=== PATIENT | female | born 1940 | race Caucasian/White ===

== ENCOUNTER 2018-10-19 17:57 | Inpatient (IN) | payer MEDICARE, BC ==
[~2018-10-19] VITALS: Ht 152.4 cm; Wt 53.0 kg
[2018-10-19 18:45] LABS: BASOPHILS # (AUTO) 0.2 X10'3 (0-0.2); BASOPHILS % (AUTO) 2.6 % (0-1); EOSINOPHILS % (AUTO) 0.4 % (0-6); HEMATOCRIT 40.4 % (35.0-45.0); HEMOGLOBIN 13.6 g/dl (12.0-16.0); LYMPHOCYTES # (AUTO) 0.8 X10'3 (1.1-4.8); LYMPHOCYTES % (AUTO) 9.8 % (21-51); MEAN CORPUSCULAR HEMOGLOBIN 30.5 PG (27.0-31.0); MEAN CORPUSCULAR HGB CONC 33.6 % (33.0-36.5); MEAN CORPUSCULAR VOLUME 90.7 FL (78-98); MEAN PLATELET VOLUME 7.5 FL (7.4-10.4); MONOCYTES # (AUTO) 0.5 X10'3 (0-0.9); MONOCYTES % (AUTO) 5.5 % (2-12); NEUTROPHILS # (AUTO) 6.7 X10'3 (1.8-7.7); NEUTROPHILS % (AUTO) 81.7 % (42-75); PLATELET COUNT 223 X10'3 (140-440); RED BLOOD COUNT 4.45 X10'6 (4.20-5.60); RED CELL DISTRIBUTION WIDTH 11.9 % (11.5-14.5); WHITE BLOOD COUNT 8.2 X10'3 (4.5-11.0)
[2018-10-19 19:01] LABS: ALANINE AMINOTRANSFERASE 17 U/L (12-78); ALBUMIN/GLOBULIN RATIO 0.8 (1.1-1.5); ALKALINE PHOSPHATASE 49 IU/L (46-116); ANION GAP 12 (8-16); ASPARTATE AMINO TRANSFERASE 15 U/L (10-37); BILIRUBIN,TOTAL 0.7 MG/DL (0.1-1.0); BLOOD UREA NITROGEN 11 MG/DL (7-18); BUN/CREATININE RATIO 12.4 (6.6-38.0); CALCIUM 8.3 MG/DL (8.5-10.1); CHLORIDE 102 MMOL/L (99-107); CREATININE 0.89 MG/DL (0.40-0.90); GLUCOSE 88 MG/DL (70-104); SODIUM 140 MMOL/L (135-145); TOTAL CARBON DIOXIDE 25.8 MMOL/L (24-32); TOTAL PROTEIN 6.9 G/DL (6.4-8.2); eGFR 62 ML/MIN
[2018-10-19 19:08] LABS: PROTHROMBIN TIME 11.2 SECONDS (9.0-12.0)
[2018-10-19 19:09] LABS: INR 1.1 INR
[2018-10-19 19:13] LABS: POTASSIUM 2.8 MMOL/L (3.5-5.1)
[2018-10-19 19:23] LABS: TOTAL CELLS COUNTED 100
[2018-10-19 19:24] LABS: PLATELET ESTIMATE NORMAL
[2018-10-19 19:25] LABS: TOXIC GRANULATION 1+
[2018-10-19 19:44] LABS: CLARITY,URINE SLIGHTLY CLOUDY (Clear); COLOR,URINE YELLOW (Yellow); GLUCOSE, URINE NEGATIVE (Neg); KETONES,URINE 40 mg/dl (Neg); LEUKOCYTE ESTERASE ,URINE NEGATIVE (Neg); NITRITES, URINE NEGATIVE (Neg); OCCULT BLOOD,URINE LARGE (Neg); PROTEIN,URINE 30 mg/dl (Neg); UROBILINOGEN,URINE 0.2 E.U/dL (0.2-1.0)
[2018-10-19 19:46] LABS: UA COLLECTION TYPE CLN CATCH MIDSTREAM
[2018-10-19 20:09] LABS: BACTERIA,URINE FEW /HPF (Neg); MUCUS STRANDS MANY /LPF (Neg); RBC,URINE 0-2 /HPF (0-2); SQUAMOUS EPITHELIAL CELL,UR MANY /LPF (FEW); YEAST MODERATE /HPF (NEGATIVE)
[2018-10-19] MEDS ORDERED: normal saline 1000ML IV soln IVB ONE (20:15)
[2018-10-19] MEDS ORDERED: potassium Cl 10 mEq/100mL bag IV ONE (20:15)
[2018-10-19] MEDS: potassium 10mEq/100ml NS w/LIDOcaine (10mg/bag) IV SCH ×2 (20:34→21:55)
[2018-10-19] MEDS ORDERED: metroNIDAZOLE-Flagyl 500mg/NS 100 ML IV STA (21:15)
[2018-10-19] MEDS ORDERED: piperacillin/tazo 3.375gm/50ml 50 ML IV ONE (21:15)
--- NOTE | 2018-10-19 23:39 | NUR ---
PT AWAITING HOSPITALIST. UP TO BR TO VOID, AMBULATING WITH STEADY GAIT. STABLE VS.
[2018-10-20] MEDS ORDERED: ATEN25TA PO (00:08)
[2018-10-20] MEDS ORDERED: DYR50C PO (00:08)
[2018-10-20] MEDS ORDERED: LEVO88TA2 PO (00:08)
--- NOTE | 2018-10-20 00:08 | NUR ---
pt awake, resting comfortably in bed - Med rec completed, pt updated on plan of care.
[2018-10-20] MEDS ORDERED: potassium Cl 20mEq in NS 1,000 ML IV SCH (01:56)
[2018-10-20] MEDS ORDERED: ondansetron/PF 4mg/2ml inj IV PRN (02:00)
[2018-10-20] MEDS ORDERED: acetaminophen 325mg tablet PO PRN (02:00)
[2018-10-20] MEDS ORDERED: magnesium hydroxide 30ml (MOM) UD suspension PO PRN (02:00)
--- NOTE | 2018-10-20 04:33 | NUR ---
pt with temp of 100.3. pain to abd is 3 out of 10. she reports some nausea and a very dry mouth. given a few ice chips and zofran. pt is plite and cooperative with all care.
[2018-10-20] MEDS ORDERED: metroNIDAZOLE-Flagyl 500mg/NS 100 ML IV SCH (08:00)
[2018-10-20] MEDS: heparin, porcine 5000 units/ml vial SQ SCH ×3 (08:00→20:00)
[2018-10-20] MEDS ORDERED: atenolol 25mg tablet PO SCH (08:00)
[2018-10-20] MEDS: piperacillin/tazo 3.375gm/50ml 50 ML IV SCH ×2 (08:08→16:40)
[2018-10-20] MEDS: levoTHYROXINE 88mcg tablet PO SCH (08:09)
[2018-10-20 08:42] LABS: ALBUMIN 2.7 G/DL (3.4-5.0); ANION GAP 13 (8-16); BLOOD UREA NITROGEN 9 MG/DL (7-18); BUN/CREATININE RATIO 11.8 (6.6-38.0); CALCIUM 7.6 MG/DL (8.5-10.1); CHLORIDE 105 MMOL/L (99-107); CREATININE 0.76 MG/DL (0.40-0.90); GLUCOSE 74 MG/DL (70-104); POTASSIUM 3.3 MMOL/L (3.5-5.1); SODIUM 141 MMOL/L (135-145); TOTAL CARBON DIOXIDE 23.5 MMOL/L (24-32); eGFR 74 ML/MIN
[2018-10-20] MEDS ORDERED: magnesium 4gm in 100ml NS 100 ML IV PRN (11:25)
[2018-10-20] MEDS ORDERED: potassium Cl 20 mEq SR tablet PO PRN ×2 (11:25)
[2018-10-20] MEDS ORDERED: potassium Cl 40MEQ/NS 500ml 500 ML IV PRN ×2 (11:25)
[2018-10-20] MEDS ORDERED: magnesium Cl slow-release 64mg tablet PO PRN (11:25)
--- NOTE | 2018-10-20 11:35 | NUR ---
PLEASE SEND 1 LITER 0.45% NS WITH K 20EQ THANK YOU
[2018-10-20] MEDS: potassium cl 20mEq in 1/2 NS 1,000 ML IV SCH ×2 (12:52→21:30)
[2018-10-20 13:07] LABS: MAGNESIUM 1.8 MG/DL (1.5-2.4)
--- NOTE | 2018-10-20 18:36 | NUR ---
PT UP TO USE THE BATHROOM, STEADY GAIT, NO ASSISTANCE NEEDED FROM ED STAFF.
--- NOTE | 2018-10-20 19:18 | NUR ---
ATTEMPTED TO CALL REPORT TO RN, PER RECORDS MANAGEMENT ANALYST NO NURSE ASSIGNED YET BUT SHE WILL WORK ON IT AND CALL BACK SHORTLY.
--- NOTE | 2018-10-20 19:45 | NUR ---
CALLED REPORT TO EDMUND DARNELL, DISCUSSED PATIENT CASE AND CONDITION.
[2018-10-20 20:15] VITALS: BP 146/82
[2018-10-20] MEDS: atenolol 25mg tablet PO SCH (21:00)
[2018-10-20] MEDS: mag hydrox/Alum hydrox/simeth 30ml oral suspension PO PRN (21:04)
[2018-10-21] VITALS: BP 146/77
[2018-10-21] MEDS: piperacillin/tazo 3.375gm/50ml 50 ML IV SCH ×3 (01:39→16:52)
[2018-10-21 03:42] VITALS: BP 146/82
[2018-10-21 06:10] LABS: BASOPHILS % (AUTO) 0.3 % (0-1); EOSINOPHILS # (AUTO) 0.1 X10'3 (0-0.9); EOSINOPHILS % (AUTO) 2.1 % (0-6); HEMATOCRIT 34.3 % (35.0-45.0); HEMOGLOBIN 11.8 g/dl (12.0-16.0); LYMPHOCYTES # (AUTO) 0.7 X10'3 (1.1-4.8); LYMPHOCYTES % (AUTO) 11.3 % (21-51); MEAN CORPUSCULAR HEMOGLOBIN 31.2 PG (27.0-31.0); MEAN CORPUSCULAR HGB CONC 34.2 % (33.0-36.5); MEAN CORPUSCULAR VOLUME 91.3 FL (78-98); MEAN PLATELET VOLUME 7.9 FL (7.4-10.4); MONOCYTES # (AUTO) 0.7 X10'3 (0-0.9); MONOCYTES % (AUTO) 11.7 % (2-12); NEUTROPHILS # (AUTO) 4.7 X10'3 (1.8-7.7); NEUTROPHILS % (AUTO) 74.6 % (42-75); PLATELET COUNT 175 X10'3 (140-440); RED BLOOD COUNT 3.76 X10'6 (4.20-5.60); RED CELL DISTRIBUTION WIDTH 12.3 % (11.5-14.5); WHITE BLOOD COUNT 6.2 X10'3 (4.5-11.0)
--- NOTE | 2018-10-21 06:25 | NUR ---
Patient in room [facility]. I have received report from Joyce DARNELL and had the opportunity to ask questions and assume patient care.
[2018-10-21 06:36] LABS: ALANINE AMINOTRANSFERASE 13 U/L (12-78); ALBUMIN 2.6 G/DL (3.4-5.0); ALBUMIN/GLOBULIN RATIO 0.8 (1.1-1.5); ALKALINE PHOSPHATASE 46 IU/L (46-116); ANION GAP 10 (8-16); ASPARTATE AMINO TRANSFERASE 14 U/L (10-37); BILIRUBIN,TOTAL 0.4 MG/DL (0.1-1.0); BLOOD UREA NITROGEN 6 MG/DL (7-18); BUN/CREATININE RATIO 7.3 (6.6-38.0); CALCIUM 7.8 MG/DL (8.5-10.1); CHLORIDE 106 MMOL/L (99-107); CREATININE 0.82 MG/DL (0.40-0.90); GLUCOSE 85 MG/DL (70-104); MAGNESIUM 1.9 MG/DL (1.5-2.4); POTASSIUM 3.2 MMOL/L (3.5-5.1); SODIUM 139 MMOL/L (135-145); TOTAL CARBON DIOXIDE 23.3 MMOL/L (24-32); eGFR 68 ML/MIN
[2018-10-21 07:30] VITALS: BP 168/80
[2018-10-21] MEDS: potassium cl 20mEq in 1/2 NS 1,000 ML IV SCH ×2 (07:30→13:14)
[2018-10-21] MEDS: heparin, porcine 5000 units/ml vial SQ SCH ×2 (08:00→20:00)
[2018-10-21] MEDS: levoTHYROXINE 88mcg tablet PO SCH (09:18)
[2018-10-21] MEDS: atenolol 25mg tablet PO SCH ×2 (09:19→21:38)
--- NOTE | 2018-10-21 09:30 | NUR ---
Patient unable to swallow potassium tablet. will call pharmacy for liquid replacement
[2018-10-21 11:00] VITALS: BP 143/82
[2018-10-21] MEDS: potassium Cl oral solution 20 MEQ/15 ML PO PRN ×2 (13:18→17:53)
--- NOTE | 2018-10-21 16:06 | NUR ---
Initial: Pt admitted with diverticulitis and diarrhea. Per MD progress notes pt gradually improving. Pt seen at bedside given written and verbal low fiber diet/diverticulitis education with RD contact information. Patient's diet just advanced from full liquid to low residue. LBM 10/21. No edema or wounds. Will continue to follow. Recommendations: 1) Continue with low residue diet 2) Wt per rx Addendum: 10/21/18 at [address] Amended: Links added.
--- NOTE | 2018-10-21 18:35 | NUR ---
Problems reprioritized. Patient report given, Joyce DARNELL questions answered & plan of care reviewed with .
[2018-10-21 19:00] VITALS: BP 150/83
[2018-10-21] MEDS: potassium Cl oral solution 20 MEQ/15 ML PO SCH (21:38)
[2018-10-22] VITALS: BP 171/89
[2018-10-22] MEDS: mag hydrox/Alum hydrox/simeth 30ml oral suspension PO PRN ×2 (00:09→13:32)
[2018-10-22] MEDS: piperacillin/tazo 3.375gm/50ml 50 ML IV SCH ×4 (00:09→23:23)
[2018-10-22] MEDS: potassium cl 20mEq in 1/2 NS 1,000 ML IV SCH (05:31)
[2018-10-22 06:23] LABS: BASOPHILS % (AUTO) 0.3 % (0-1); EOSINOPHILS # (AUTO) 0.2 X10'3 (0-0.9); HEMATOCRIT 35.9 % (35.0-45.0); HEMOGLOBIN 12.1 g/dl (12.0-16.0); LYMPHOCYTES # (AUTO) 0.9 X10'3 (1.1-4.8); LYMPHOCYTES % (AUTO) 16.4 % (21-51); MEAN CORPUSCULAR HGB CONC 33.7 % (33.0-36.5); MEAN PLATELET VOLUME 8.3 FL (7.4-10.4); MONOCYTES # (AUTO) 0.7 X10'3 (0-0.9); MONOCYTES % (AUTO) 12.8 % (2-12); NEUTROPHILS # (AUTO) 3.9 X10'3 (1.8-7.7); NEUTROPHILS % (AUTO) 67.5 % (42-75); PLATELET COUNT 192 X10'3 (140-440); RED CELL DISTRIBUTION WIDTH 11.6 % (11.5-14.5); WHITE BLOOD COUNT 5.7 X10'3 (4.5-11.0)
--- NOTE | 2018-10-22 06:25 | NUR ---
Patient in room [facility]. I have received report from Joyce DARNELL and had the opportunity to ask questions and assume patient care.
--- NOTE | 2018-10-22 06:34 | NUR ---
Problems reprioritized. Patient report given, questions answered & plan of care reviewed with Ann DARNELL. Addendum: 10/22/18 at 0635 by Joyce Quinones RN Amended: Links added.
[2018-10-22 06:45] LABS: ALANINE AMINOTRANSFERASE 13 U/L (12-78); ALBUMIN 2.6 G/DL (3.4-5.0); ALBUMIN/GLOBULIN RATIO 0.7 (1.1-1.5); ALKALINE PHOSPHATASE 45 IU/L (46-116); ANION GAP 10 (8-16); ASPARTATE AMINO TRANSFERASE 12 U/L (10-37); BILIRUBIN,TOTAL 0.5 MG/DL (0.1-1.0); BLOOD UREA NITROGEN 5 MG/DL (7-18); BUN/CREATININE RATIO 5.8 (6.6-38.0); CALCIUM 8.2 MG/DL (8.5-10.1); CHLORIDE 106 MMOL/L (99-107); CREATININE 0.86 MG/DL (0.40-0.90); GLUCOSE 88 MG/DL (70-104); MAGNESIUM 2.1 MG/DL (1.5-2.4); POTASSIUM 3.8 MMOL/L (3.5-5.1); SODIUM 140 MMOL/L (135-145); TOTAL CARBON DIOXIDE 24.1 MMOL/L (24-32); TOTAL PROTEIN 6.3 G/DL (6.4-8.2); eGFR 64 ML/MIN
[2018-10-22 07:21] VITALS: BP 163/106
[2018-10-22] MEDS: heparin, porcine 5000 units/ml vial SQ SCH ×2 (08:00→19:08)
[2018-10-22] MEDS: levoTHYROXINE 88mcg tablet PO SCH (09:25)
[2018-10-22] MEDS: atenolol 25mg tablet PO SCH ×2 (09:25→20:32)
[2018-10-22] MEDS: potassium Cl oral solution 20 MEQ/15 ML PO SCH ×3 (09:26→20:31)
[2018-10-22] MEDS: cloNIDine 0.1 mg tablet PO SCH ×2 (11:57→20:32)
[2018-10-22 14:50] LABS: C DIFF ANTIGEN NEGATIVE (NEGATIVE); C DIFF SPECIMEN=DIARRHEA? ACCEPTABLE; C DIFFICILE TOXINS A&B NEGATIVE (Neg)
[2018-10-22] MEDS ORDERED: loperamide 2mg capsule PO PRN (17:00)
[2018-10-22 18:15] LABS: OCCULT BLOOD STOOL NEGATIVE (Neg)
--- NOTE | 2018-10-22 18:24 | NUR ---
Problems reprioritized. Patient report given, Joyce DARNELL questions answered & plan of care reviewed with .
[2018-10-22 19:00] VITALS: BP 124/74
[2018-10-23] VITALS: BP 127/84
--- NOTE | 2018-10-23 06:14 | NUR ---
Problems reprioritized. Patient report given, questions answered & plan of care reviewed with Ann DARNELL. Addendum: 10/23/18 at 0615 by Joyce Quinones RN Amended: Links added.
--- NOTE | 2018-10-23 06:20 | NUR ---
Patient in room [facility]. I have received report from Joyce DARNELL and had the opportunity to ask questions and assume patient care.
[2018-10-23 07:06] LABS: BASOPHILS % (AUTO) 0.6 % (0-1); EOSINOPHILS # (AUTO) 0.2 X10'3 (0-0.9); EOSINOPHILS % (AUTO) 3.9 % (0-6); HEMOGLOBIN 11.2 g/dl (12.0-16.0); LYMPHOCYTES # (AUTO) 1.3 X10'3 (1.1-4.8); LYMPHOCYTES % (AUTO) 29.6 % (21-51); MEAN CORPUSCULAR HEMOGLOBIN 30.8 PG (27.0-31.0); MEAN CORPUSCULAR HGB CONC 33.9 % (33.0-36.5); MEAN CORPUSCULAR VOLUME 90.9 FL (78-98); MEAN PLATELET VOLUME 8.4 FL (7.4-10.4); MONOCYTES # (AUTO) 0.6 X10'3 (0-0.9); NEUTROPHILS # (AUTO) 2.2 X10'3 (1.8-7.7); NEUTROPHILS % (AUTO) 52.9 % (42-75); PLATELET COUNT 200 X10'3 (140-440); RED BLOOD COUNT 3.64 X10'6 (4.20-5.60); RED CELL DISTRIBUTION WIDTH 12.1 % (11.5-14.5); WHITE BLOOD COUNT 4.3 X10'3 (4.5-11.0)
[2018-10-23 07:13] LABS: ALANINE AMINOTRANSFERASE 13 U/L (12-78); ALBUMIN 2.5 G/DL (3.4-5.0); ALBUMIN/GLOBULIN RATIO 0.7 (1.1-1.5); ALKALINE PHOSPHATASE 40 IU/L (46-116); ANION GAP 8 (8-16); ASPARTATE AMINO TRANSFERASE 17 U/L (10-37); BILIRUBIN,TOTAL 0.3 MG/DL (0.1-1.0); BLOOD UREA NITROGEN 6 MG/DL (7-18); BUN/CREATININE RATIO 6.5 (6.6-38.0); CALCIUM 7.8 MG/DL (8.5-10.1); CHLORIDE 105 MMOL/L (99-107); CREATININE 0.92 MG/DL (0.40-0.90); GLUCOSE 88 MG/DL (70-104); MAGNESIUM 2.1 MG/DL (1.5-2.4); POTASSIUM 3.8 MMOL/L (3.5-5.1); SODIUM 140 MMOL/L (135-145); TOTAL CARBON DIOXIDE 26.9 MMOL/L (24-32); TOTAL PROTEIN 6.1 G/DL (6.4-8.2); eGFR 59 ML/MIN
[2018-10-23 07:42] VITALS: BP 126/76
[2018-10-23] MEDS: cloNIDine 0.1 mg tablet PO SCH (07:49)
[2018-10-23] MEDS: atenolol 25mg tablet PO SCH (07:49)
[2018-10-23] MEDS: piperacillin/tazo 3.375gm/50ml 50 ML IV SCH (07:49)
[2018-10-23] MEDS: levoTHYROXINE 88mcg tablet PO SCH (07:49)
[2018-10-23] MEDS: potassium Cl oral solution 20 MEQ/15 ML PO SCH (07:55)
[2018-10-23] MEDS: heparin, porcine 5000 units/ml vial SQ SCH (07:56)
[2018-10-23] MEDS ORDERED: lactobacillus rhamnosus 10,000 MMU CELLS/CAPSULE PO SCH (08:00)
[2018-10-23] MEDS ORDERED: CLON0.1T PO (10:24)
[2018-10-23] MEDS ORDERED: AMOX-420 PO (10:24)
[2018-10-23] MEDS ORDERED: ONDA4TAB6 PO (10:24)
--- NOTE | 2018-10-23 11:45 | NUR ---
Patient has been discharged home with daughter all belongings sent, IV removed. Patients medications have been called into [facility] on [address]. Patient alert and appropriate. Staff wheel chaired patient to lobby
--- NOTE | 2018-10-23 11:53 | NUR ---
Patient has been discharged. Medication Augmentin XR Q8H #20 tabs has been changed to Augmentin 875 BID x 10 Day #[address] Velazquez. Patient is aware
[2018-10-23] MEDS ORDERED: AMOX-580 PO (12:05)
== END 2018-10-23 11:50 | disposition home or self-care (01) | DRG 392 ==
LOC: ER 17:58 → ED HOLD 10-20 01:56 → SUR 3N 10-20 20:15
PROVIDERS: ADMIT Internal Medicine; ATTEND Family Medicine
DX: K57.32 Diverticulitis of large intestine without perforation or abscess without bleeding (principal); E03.9 Hypothyroidism, unspecified; I10 Essential (primary) hypertension; K21.9 Gastro-esophageal reflux disease without esophagitis; G47.33 Obstructive sleep apnea (adult) (pediatric); E87.6 Hypokalemia; Z88.2 Allergy status to sulfonamides; Z79.899 Other long term (current) drug therapy; Z87.891 Personal history of nicotine dependence
CPT/HCPCS: 36415; 74176; 80048; 80053; 81001; 82272; 83735; 84443; 85025; 85610; 87045; 87046; 87070; 87324; 87449; 89055; 96365; 96368; 99285; G0378; J1644; J2405; J2543; J3480; J3490

== ENCOUNTER 2019-11-28 09:16 | Emergency (ER) | payer MEDICARE, BC ==
[~2019-11-28] VITALS: Ht 157.5 cm; Wt 60.0 kg
[~2019-11-28 09:16] MED LIST: ATEN25TA PO; CLON0.1T PO; LEVO88TA2 PO; ONDA4TAB6 PO
[2019-11-28 09:43] LABS: BASOPHILS % (AUTO) 0.3 % (0-1); EOSINOPHILS % (AUTO) 0.2 % (0-6); HEMATOCRIT 40.6 % (35.0-45.0); HEMOGLOBIN 14.2 g/dl (12.0-16.0); LYMPHOCYTES # (AUTO) 0.6 X10'3 (1.1-4.8); MEAN CORPUSCULAR HEMOGLOBIN 31.1 PG (27.0-31.0); MEAN PLATELET VOLUME 7.6 FL (7.4-10.4); MONOCYTES # (AUTO) 0.6 X10'3 (0-0.9); MONOCYTES % (AUTO) 12.5 % (2-12); NEUTROPHILS # (AUTO) 3.9 X10'3 (1.8-7.7); PLATELET COUNT 135 X10'3 (140-440); RED BLOOD COUNT 4.56 X10'6 (4.20-5.60); RED CELL DISTRIBUTION WIDTH 12.6 % (11.5-14.5); WHITE BLOOD COUNT 5.2 X10'3 (4.5-11.0)
[2019-11-28 10:04] LABS: ALANINE AMINOTRANSFERASE 18 U/L (12-78); ALBUMIN 3.4 G/DL (3.4-5.0); ALBUMIN/GLOBULIN RATIO 0.9 (1.1-1.5); ALKALINE PHOSPHATASE 48 IU/L (46-116); AMYLASE 34 U/L (25-115); ANION GAP 13 (8-16); ASPARTATE AMINO TRANSFERASE 24 U/L (10-37); BILIRUBIN,TOTAL 0.6 MG/DL (0.1-1.0); BLOOD UREA NITROGEN 10 MG/DL (7-18); BUN/CREATININE RATIO 13.5 (6.6-38.0); CALCIUM 8.6 MG/DL (8.5-10.1); CHLORIDE 100 MMOL/L (99-107); CREATININE 0.74 MG/DL (0.40-0.90); GLUCOSE 92 MG/DL (70-104); LIPASE 100 U/L (73-393); POTASSIUM 3.4 MMOL/L (3.5-5.1); SODIUM 137 MMOL/L (135-145); TOTAL CARBON DIOXIDE 24.4 MMOL/L (24-32); TOTAL PROTEIN 7.3 G/DL (6.4-8.2); eGFR 76 ML/MIN
[2019-11-28] MEDS ORDERED: ondansetron/PF 4mg/2ml inj IV ONE (11:35)
[2019-11-28] MEDS ORDERED: normal saline 1000ML IV soln IVB ONE (11:35)
[2019-11-28 11:46] LABS: CLARITY,URINE CLOUDY (Clear); COLOR,URINE YELLOW (Yellow); GLUCOSE, URINE NEGATIVE (Neg); KETONES,URINE >=80 mg/dl (Neg); LEUKOCYTE ESTERASE ,URINE SMALL (Neg); NITRITES, URINE NEGATIVE (Neg); OCCULT BLOOD,URINE LARGE (Neg); PROTEIN,URINE 30 mg/dl (Neg); UROBILINOGEN,URINE 0.2 E.U/dL (0.2-1.0)
[2019-11-28 11:52] LABS: UA COLLECTION TYPE CLN CATCH MIDSTREAM
[2019-11-28 11:53] LABS: MUCUS STRANDS MODERATE /LPF (Neg); SQUAMOUS EPITHELIAL CELL,UR MANY /LPF (FEW)
[2019-11-28 11:55] LABS: BACTERIA,URINE FEW /HPF (Neg)
[2019-11-28] MEDS ORDERED: METR250T PO (13:19)
[2019-11-28] MEDS ORDERED: CIPR-230 PO (13:19)
[2019-11-28] MEDS ORDERED: TRAM50TA2 PO (13:19)
[2019-11-28] MEDS ORDERED: ONDA4TAB6 PO (13:19)
[2019-11-28 13:32] VITALS: BP 174/90
== END 2019-11-28 13:38 | disposition home or self-care (01) ==
LOC: ER 09:16
DX: K57.92 Diverticulitis of intestine, part unspecified, without perforation or abscess without bleeding (principal); N39.0 Urinary tract infection, site not specified; K92.1 Melena; I10 Essential (primary) hypertension; E03.9 Hypothyroidism, unspecified; Z88.2 Allergy status to sulfonamides; Z79.899 Other long term (current) drug therapy
CPT/HCPCS: 36415; 71045; 74176; 80053; 81001; 82150; 83690; 85025; 96374; 99285; J2405; J7030; 99284

== ENCOUNTER 2019-11-30 09:59 | Emergency (ER) | payer MEDICARE, BC ==
[~2019-11-30] VITALS: Ht 147.3 cm; Wt 60.0 kg
[~2019-11-30 09:59] MED LIST changes: +CIPR-230 PO; +METR250T PO; +TRAM50TA2 PO
[2019-11-30 10:29] LABS: BASOPHILS % (AUTO) 0.4 % (0-1); EOSINOPHILS % (AUTO) 0.3 % (0-6); HEMATOCRIT 39.6 % (35.0-45.0); HEMOGLOBIN 13.7 g/dl (12.0-16.0); LYMPHOCYTES % (AUTO) 16.8 % (21-51); MEAN CORPUSCULAR HEMOGLOBIN 30.5 PG (27.0-31.0); MEAN CORPUSCULAR HGB CONC 34.6 g/dL (33.0-36.5); MEAN CORPUSCULAR VOLUME 88.1 FL (78-98); MEAN PLATELET VOLUME 7.7 FL (7.4-10.4); MONOCYTES # (AUTO) 0.6 X10'3 (0-0.9); MONOCYTES % (AUTO) 10.2 % (2-12); NEUTROPHILS # (AUTO) 4.2 X10'3 (1.8-7.7); NEUTROPHILS % (AUTO) 72.3 % (42-75); PLATELET COUNT 143 X10'3 (140-440); RED CELL DISTRIBUTION WIDTH 12.5 % (11.5-14.5); WHITE BLOOD COUNT 5.8 X10'3 (4.5-11.0)
[2019-11-30 10:42] LABS: ALANINE AMINOTRANSFERASE 13 U/L (12-78); ALBUMIN 3.1 G/DL (3.4-5.0); ALBUMIN/GLOBULIN RATIO 0.8 (1.1-1.5); ALKALINE PHOSPHATASE 44 IU/L (46-116); ANION GAP 13 (8-16); ASPARTATE AMINO TRANSFERASE 21 U/L (10-37); BILIRUBIN,TOTAL 0.6 MG/DL (0.1-1.0); BLOOD UREA NITROGEN 7 MG/DL (7-18); BUN/CREATININE RATIO 8.4 (6.6-38.0); CALCIUM 8.3 MG/DL (8.5-10.1); CHLORIDE 99 MMOL/L (99-107); CREATININE 0.83 MG/DL (0.40-0.90); GLUCOSE 98 MG/DL (70-104); LIPASE 88 U/L (73-393); SODIUM 137 MMOL/L (135-145); TOTAL CARBON DIOXIDE 25.5 MMOL/L (24-32); TOTAL PROTEIN 6.9 G/DL (6.4-8.2); eGFR 67 ML/MIN
[2019-11-30 10:44] LABS: POTASSIUM 2.9 MMOL/L (3.5-5.1)
[2019-11-30] MEDS ORDERED: D5-1/2NS w/20 mEq potassium per 1000ml IV ONE (11:00)
--- NOTE | 2019-11-30 11:01 | NUR ---
PT. GIVEN SOME WATER. WITH DR. LAWRENCE PERMISSION
[2019-11-30] MEDS ORDERED: POTA10CA44 PO (12:39)
[2019-11-30] MEDS ORDERED: ROBDML PO (13:16)
[2019-11-30 13:43] VITALS: BP 161/94
[2019-11-30 15:01] LABS: C DIFF ANTIGEN NEGATIVE (NEGATIVE); C DIFF SPECIMEN=DIARRHEA? ACCEPTABLE; C DIFFICILE TOXINS A&B NEGATIVE (Neg)
== END 2019-11-30 13:30 | disposition home or self-care (01) ==
LOC: ER 10:00
DX: R19.7 Diarrhea, unspecified (principal); E87.6 Hypokalemia; I10 Essential (primary) hypertension; E03.9 Hypothyroidism, unspecified; Z88.2 Allergy status to sulfonamides; Z79.1 Long term (current) use of non-steroidal anti-inflammatories (NSAID); Z79.899 Other long term (current) drug therapy
CPT/HCPCS: 36415; 80053; 83605; 83690; 85025; 87045; 87046; 87324; 87449; 96365; 99284; J3480

== ENCOUNTER 2021-04-11 01:41 | Emergency (ER) | payer MEDICARE, BC ==
[~2021-04-11] VITALS: Ht 157.5 cm; Wt 59.1 kg
[~2021-04-11 01:41] MED LIST changes: -CIPR-230 PO; -METR250T PO; -TRAM50TA2 PO
[2021-04-11 02:23] LABS: BASOPHILS % (AUTO) 0.3 % (0-1); EOSINOPHILS % (AUTO) 0.3 % (0-6); HEMATOCRIT 42.7 % (35.0-45.0); HEMOGLOBIN 14.8 g/dl (12.0-16.0); LYMPHOCYTES % (AUTO) 9.6 % (21-51); MEAN CORPUSCULAR HEMOGLOBIN 31.6 PG (27.0-31.0); MEAN CORPUSCULAR HGB CONC 34.8 g/dL (33.0-36.5); MEAN PLATELET VOLUME 7.7 FL (7.4-10.4); MONOCYTES # (AUTO) 0.7 X10'3 (0-0.9); MONOCYTES % (AUTO) 6.8 % (2-12); NEUTROPHILS # (AUTO) 8.7 X10'3 (1.8-7.7); PLATELET COUNT 218 X10'3 (140-440); RED BLOOD COUNT 4.69 X10'6 (4.20-5.60); RED CELL DISTRIBUTION WIDTH 13.5 % (11.5-14.5); WHITE BLOOD COUNT 10.5 X10'3 (4.5-11.0)
[2021-04-11 02:32] LABS: ALANINE AMINOTRANSFERASE 13 U/L (12-78); ALBUMIN 3.6 G/DL (3.4-5.0); ALBUMIN/GLOBULIN RATIO 0.9 (1.1-1.5); ALKALINE PHOSPHATASE 59 IU/L (46-116); ANION GAP 8 (8-16); ASPARTATE AMINO TRANSFERASE 14 U/L (10-37); BILIRUBIN,TOTAL 0.8 MG/DL (0.1-1.0); BLOOD UREA NITROGEN 19 MG/DL (7-18); BUN/CREATININE RATIO 21.6 (6.6-38.0); CALCIUM 9.2 MG/DL (8.5-10.1); CHLORIDE 103 MMOL/L (99-107); CREATININE 0.88 MG/DL (0.40-0.90); GLUCOSE 141 MG/DL (70-104); LIPASE 95 U/L (73-393); POTASSIUM 3.1 MMOL/L (3.5-5.1); SODIUM 143 MMOL/L (135-145); TOTAL CARBON DIOXIDE 31.7 MMOL/L (24-32); TOTAL PROTEIN 7.5 G/DL (6.4-8.2); eGFR 62 ML/MIN
--- NOTE | 2021-04-11 04:15 | NUR ---
pt reports unable to urinate
[2021-04-11] MEDS ORDERED: POTASSIUM BICARB 20meq eff tab 20 MEQ TABLET.EFF PO ONE (05:45)
[2021-04-11] MEDS ORDERED: HYDR-3972 PO (06:12)
[2021-04-11] MEDS ORDERED: ONDA4TAB6 PO (06:12)
[2021-04-11] MEDS ORDERED: morphine 4 MG/ML inj SYRINge IV ONE (06:15)
[2021-04-11] MEDS ORDERED: proCHLORperazine 10 MG/2 ml inj IV ONE (06:15)
[2021-04-11] MEDS ORDERED: ondansetron 4mg rapidly disintigrating tab PO ONE (06:30)
[2021-04-11] MEDS ORDERED: ketorolac tromethamine 15mg/ml inj. IM ONE (06:30)
[2021-04-11 06:41] VITALS: BP 133/83
== END 2021-04-11 06:43 | disposition home or self-care (01) ==
LOC: ER 01:43
DX: R10.30 Lower abdominal pain, unspecified (principal); K52.9 Noninfective gastroenteritis and colitis, unspecified; R11.2 Nausea with vomiting, unspecified; I10 Essential (primary) hypertension; E03.9 Hypothyroidism, unspecified; M19.90 Unspecified osteoarthritis, unspecified site; Z88.2 Allergy status to sulfonamides; Z88.8 Allergy status to other drugs, medicaments and biological substances; Z79.899 Other long term (current) drug therapy
CPT/HCPCS: 36415; 74176; 80053; 83690; 85025; 96372; 99284; J1885

== ENCOUNTER 2024-11-03 08:17 | Day surgery (SDC) | payer MEDICARE, BC ==
[~2024-11-03] VITALS: Ht 149.9 cm; Wt 49.5 kg
[~2024-11-03 08:17] MED LIST changes: -ATEN25TA PO; -CLON0.1T PO; +LISI20TA28 PO; +OMEP40CA21 PO; -ONDA4TAB6 PO
[2024-11-03 08:59] VITALS: BP 112/73; PULSE 78; RESP 12; TEMP 97.7
[2024-11-03 09:51] VITALS: BP 113/64; PULSE 68; RESP 16; TEMP 97.7
[2024-11-03] MEDS ORDERED: propofol 10mg/ml 20ml vial IV ONE (09:56)
[2024-11-03 10:20] VITALS: BP 94/49; PULSE 71; RESP 13; O2SAT 98
[2024-11-03 10:30] VITALS: BP 115/65; PULSE 69; RESP 13; O2SAT 99
[2024-11-03 10:40] VITALS: BP 116/63; PULSE 68; RESP 14; O2SAT 99
[2024-11-03 10:50] VITALS: BP 115/63; PULSE 65; RESP 13; O2SAT 99
== END 2024-11-03 10:50 | disposition home or self-care (01) ==
LOC: GI LAB 08:17
PROVIDERS: ATTEND Internal Medicine Gastroenterology
DX: R10.13 Epigastric pain (principal); K44.9 Diaphragmatic hernia without obstruction or gangrene; K21.00 Gastro-esophageal reflux disease with esophagitis, without bleeding; R13.10 Dysphagia, unspecified; I10 Essential (primary) hypertension; E03.9 Hypothyroidism, unspecified; G47.33 Obstructive sleep apnea (adult) (pediatric); Z96.641 Presence of right artificial hip joint; Z88.2 Allergy status to sulfonamides; Z88.1 Allergy status to other antibiotic agents; Z79.899 Other long term (current) drug therapy; Z98.890 Other specified postprocedural states
CPT/HCPCS: 43239; J2704; J7030; Z7512; 88305

== ENCOUNTER 2025-01-18 05:34 | Observation (INO) | payer MEDICARE, BC ==
[2025-01-11 16:18] LABS: BASOPHILS % (AUTO) 0.4 % (0-1); EOSINOPHILS # (AUTO) 0.1 X10'3 (0-0.9); LYMPHOCYTES # (AUTO) 1.8 X10'3 (1.1-4.8); LYMPHOCYTES % (AUTO) 28.5 % (21-51); MEAN CORPUSCULAR HEMOGLOBIN 27.4 PG (27.0-31.0); MEAN CORPUSCULAR HGB CONC 32.6 g/dL (33.0-36.5); MEAN CORPUSCULAR VOLUME 84.1 FL (78-98); MEAN PLATELET VOLUME 7.4 FL (7.4-10.4); MONOCYTES # (AUTO) 0.7 X10'3 (0-0.9); MONOCYTES % (AUTO) 10.4 % (2-12); NEUTROPHILS # (AUTO) 3.8 X10'3 (1.8-7.7); NEUTROPHILS % (AUTO) 59.7 % (42-75); PRE OP HEMATOCRIT 28.3 % (35.0-45.0); PRE OP PLATELET COUNT 221 X10'3 (140-440); PRE OP WHITE BLOOD COUNT 6.4 10'3 (4.8-10.8); RED BLOOD COUNT 3.37 X10'6 (4.20-5.60); RED CELL DISTRIBUTION WIDTH 16.2 % (11.5-14.5)
[2025-01-11 16:22] LABS: PRE OP HEMOGLOBIN 9.2 g/dL (12.0-16.0)
[2025-01-11 16:47] LABS: ALBUMIN 3.4 G/DL (3.4-5.0); ALBUMIN/GLOBULIN RATIO 0.9 (1.1-1.5); ALKALINE PHOSPHATASE 58 IU/L (46-116); BLOOD UREA NITROGEN 24 MG/DL (7-18); CALCIUM 8.7 MG/DL (8.5-10.1); CHLORIDE 104 MMOL/L (99-107); CREATININE 0.96 MG/DL (0.40-0.90); PRE OP ALT 15 U/L (30-65); PRE OP ANION GAP 9 (8-16); PRE OP AST 15 U/L (10-37); PRE OP BILIRUB, TOTAL 0.4 MG/DL (0.0-1.0); PRE OP GLUCOSE 72 MG/DL (70-104); PRE OP SODIUM 142 MMOL/L (135-145); TOTAL CARBON DIOXIDE 29.3 MMOL/L (24-32); TOTAL PROTEIN 7.4 G/DL (6.4-8.2); eGFR 56 ML/MIN
[2025-01-11 16:49] LABS: PRE OP POTASSIUM 2.9 MMOL/L (3.4-5.1)
[~2025-01-18] VITALS: Ht 149.9 cm; Wt 50.3 kg
[2025-01-18] VITALS (27 sets, daily range): BP systolic 105–147; BP diastolic 63–85; PULSE 50–121; RESP 8–24; TEMP 97.3–98.4; O2SAT 84–100
[~2025-01-18 05:34] MED LIST changes: +LEVO50TA8 PO; -LEVO88TA2 PO; +LISI1TAB53 PO; -LISI20TA28 PO
[2025-01-18] MEDS: famotidine 20mg tablet PO ONE (06:21)
[2025-01-18] MEDS: ringers solution, lacted 1,000 ML IV SCH ×2 (06:23→07:35)
[2025-01-18] MEDS: ceFAZolin 2gm in dextrose, iso 50 ML IV ONE (06:24)
[2025-01-18 07:02] LABS: ISTAT CREATININE 1.2 mg/dL (0.6-1.1); ISTAT HGB 8.8 g/dl (12.0-16.0); ISTAT IONIZED CALCIUM 1.24 mmol/L (1.03-1.32); POC BUN/CREATININE RATIO 19.2 (6.6-38.0)
[2025-01-18] MEDS ORDERED: LIDOcaine 1% 30ml preserv. free vial ONE (07:05)
[2025-01-18] MEDS ORDERED: BUPIVAcaine 2.5mg/ml inj 50ml vial (contains preservative) ONE (07:05)
[2025-01-18] MEDS ORDERED: fentaNYL/PF 50MCG/1 ML 2ML syringe ONE (07:24)
[2025-01-18] MEDS ORDERED: midazolam 1 mg/ML 2ml injection ONE (07:24)
[2025-01-18] MEDS ORDERED: propofol inj 20 ML IV ONE (07:24)
[2025-01-18] MEDS ORDERED: rocuronium 10mg/ml inj IV ONE (07:25)
[2025-01-18] MEDS ORDERED: sevoflurane 250ml liquid IH ONE (07:29)
[2025-01-18] MEDS ORDERED: morphine 4 MG/ML inj SYRINge IV PRN (07:35)
[2025-01-18] MEDS ORDERED: meperidine/PF 25mg/ml syringe IV PRN (07:35)
[2025-01-18] MEDS ORDERED: labetalol 20mg/4ml (5mg/ml) syringe IV PRN (07:35)
[2025-01-18] MEDS ORDERED: HYDROmorphone/PF 0.2 MG/ML SYRINGE IV PRN ×2 (07:35)
[2025-01-18] MEDS ORDERED: ondansetron/PF 4mg/2ml inj IV PRN (07:35)
[2025-01-18] MEDS ORDERED: morphine 2 MG/ML inj. syringe IV PRN (07:35)
[2025-01-18] MEDS: BUPIVAcaine/PF 2.5 mg/ml (0.25%) 30ml vial IJ ONE (08:38)
[2025-01-18] MEDS ORDERED: dexamethasone sod phosphate 4mg/ml inj. ONE (09:14)
[2025-01-18] MEDS ORDERED: albumin (Human) 5% 250ml 250 ML IV ONE (09:14)
[2025-01-18] MEDS ORDERED: ondansetron/PF 4mg/2ml inj ONE ×2 (09:14→10:51)
[2025-01-18] MEDS ORDERED: acetaminophen 1,000mg/100ml IV 100 ML IV ONE (10:35)
[2025-01-18] MEDS ORDERED: sugammadex 200mg/2ml injection IV ONE (10:48)
[2025-01-18] MEDS ORDERED: ePHEDrine 50MG/ML INJ. ONE (10:52)
[2025-01-18] MEDS ORDERED: naloxone 0.4 mg/ml inj IV PRN (11:20)
[2025-01-18] MEDS: HYDROmorph/NS 0.2 mg/ml PCA 100 ML IV SCH (12:38)
[2025-01-18] MEDS: normal saline 1000ml 1,000 ML IV SCH (17:55)
[2025-01-18] MEDS: heparin, porcine 5000 units/ml vial SQ SCH (20:00)
[2025-01-18] MEDS: potassium CL 20mEq in D5-1/2NS 1,000 ML IV SCH (20:00)
[2025-01-19 02:00] VITALS: BP 114/63; PULSE 71; RESP 12; TEMP 98.3; O2SAT 100
[2025-01-19] MEDS: ondansetron/PF 4mg/2ml inj IV PRN (03:19)
[2025-01-19 06:00] VITALS: BP 116/68; PULSE 88; RESP 16; TEMP 98.5; O2SAT 100
[2025-01-19] MEDS ORDERED: oxyCODONE/APAP 5-325mg tablet PO PRN (07:15)
[2025-01-19] MEDS: levoTHYROXINE 25mcg tablet PO SCH (07:43)
[2025-01-19] MEDS: oxyCODONE/APAP 5-325mg tablet PO ONE (07:45)
[2025-01-19] MEDS: lisinopril 20mg tablet PO SCH (07:51)
[2025-01-19 08:00] VITALS: RESP 15; O2SAT 96
[2025-01-19] MEDS: HYDROchlorothiazide 25mg tablet PO SCH (08:00)
[2025-01-19] MEDS: PCA WASTE DOCUMENTATION 1 MG ML MC SCH (08:00)
[2025-01-19 10:00] VITALS: BP 115/59; RESP 18; TEMP 98.4; O2SAT 97
[2025-01-19 10:46] VITALS: PULSE 76; RESP 20; O2SAT 98
[2025-01-19] MEDS ORDERED: HYDROcodone/acetaminophen 5mg/325mg tablet PO PRN (14:10)
[2025-01-19] MEDS ORDERED: HYDR-3964 PO (14:14)
== END 2025-01-19 15:07 | disposition home or self-care (01) ==
LOC: PAS 05:34 → PACU 11:24 → SUR 3N 13:21
PROVIDERS: ADMIT Surgery; ATTEND Surgery
DX: K44.9 Diaphragmatic hernia without obstruction or gangrene (principal); M41.9 Scoliosis, unspecified; Z79.899 Other long term (current) drug therapy; Z98.890 Other specified postprocedural states
CPT/HCPCS: 43282; 80047; 80053; 94760; 96372; 96374; A4615; A4618; C1781; G0378; J0690; J1171; J3480; J3490; J7120; 36415; 71045; 85025; 87081; J0131; J1100; J1644; J2003; J2250; J2405; J2704; J3010; J7030; P9045

== ENCOUNTER 2025-03-17 19:45 | Emergency (ER) | payer MEDICARE, BC ==
[~2025-03-17 19:45] MED LIST changes: +HYDR-3964 PO
[2025-03-17 20:13] VITALS: BP 107/66; PULSE 72; RESP 15; TEMP 97.6; O2SAT 99
--- NOTE | 2025-03-17 20:14 | Physician Documentation ---
History of Present Illness ~ Stated Complaint: CAT BITE ON RT ARM OK to notify your PCP?: Yes Primary Medical Doctor: Josie Juárez Source: patient Mode of Arrival: POV Exam Limitations: no limitations HPI 84-year-old female presents with cat bite and redness to right forearm from her own cat which occurred yesterday. Tetanus within 5 years?: No Medication Reconciliation Allergies: Coded Allergies: Sulfa (Sulfonamide Antibiotics) (Verified Allergy, Unknown, 03/17/25) latex (Verified Allergy, Unknown, 03/17/25) nitrofurantoin (Verified Allergy, Unknown, 03/17/25) Scheduled Levothyroxine Sodium (Levothyroxine Sodium), 1 TAB PO QAM, (Reported) Lisinopril/Hydrochlorothiazide (Lisinopril-Hctz 20-25 mg Tab), 1 TAB PO DAILY, (Reported) Omeprazole (Prilosec), 0.5 CAP PO DAILY, (Reported) Scheduled PRN Hydrocodone Bit/Acetaminophen (Hydrocodon-Acetaminophen 5-325), 1 TAB PO Q4H PRN for moderate or severe pain 4-10 Past Medical History Past Medical History: Hypertension, Diverticulitis, Diverticulosis, Hypothyroidism, Arthritis Past Surgical History: noncontributory Patient History: CVA FATHER FH: CHF (congestive heart failure) CHILD FH: diabetes mellitus MOTHER FH: myocardial infarction Hypertension FATHER MOTHER Alcohol Use: None Drug Use: none Lives with: Family Lives In: Home Occupation: retired Review of Systems All Other Systems at this time: Reviewed and Negative Physical Exam Vital Signs: RN Vital Signs have been reviewed: Yes Pulse Oximetry Reflects: adequate oxygenation Physical Exam General: Alert, no apparent distress. HEENT: PERRL, EOMI, no injection, moist mucous membranes. Neck: Full range of motion. Respiratory: Lungs clear, no respiratory distress. Chest: No accessory muscle use. Cardiovascular: Regular rate and rhythm, no murmurs. Gastrointestinal: Soft, nontender, nondistended. Bowels sounds present. Extremities: Normal range of motion, no deformity. Neurologic: Oriented x4. Psychiatric: Normal mood and affect. Skin: Small puncture to right forearm with surrounding erythema, no induration, approximately 10 cm x 5 cm Progress Results/Orders Reviewed/noted all lab results: Yes Results/Orders Vital Signs 03/17/25 20:13 Temp 97.6 Pulse 72 Resp 15 B/P (MAP) 107/66 Pulse Ox 99 Medical Decision Making Findings Pleasant 84-year-old female presents with a cat bite was some erythema surrounding it on her right forearm from her own cat. She also not had a tetanus vaccine in some time and can not remember when her last 1 was so that was ordered. She was started on Augmentin 1st dose given while in the department. I also marked the erythema and educated her that if the redness spreads outside of the marked line then she needs to be seen immediately. She should follow up with the primary care provider and return back here for any new or worsening symptoms. She should monitor for signs or symptoms of infection and be seen if the redness or infection spreads. Differential Dx:Considerations: Include: Allergic reaction, Cellulitis, Contusion Departure Disposition: HOME / SELF CARE / HOMELESS Impression: Primary Impression: Cat bite Condition: Stable Discharge Instructions: Animal Bite, Adult Referrals: NO PRIMARY CARE PROVIDER (PCP) Prescriptions Amox Tr/Potassium Clavulanate 875/125 MG (Augmentin 875/125 MG) 875 Mg-125 Mg Tablet 1 TAB PO Q12H for 10 Days, #20 TAB Prov: SHRUTHI FINNEGAN 03/17/25 Education Educated: Patient, Family Educated regarding: diagnosis, treatment, prognosis, need for follow up Additional Comment Medical Screen Exam This patient recieved a medical screening examination. After reviewing the individual's medical complaints with presenting symptoms and performing an appropriate physical examination, it was determined that no emergency medical condition is present. This individual is also not a women having contractions. Signature Scribe Signature: . Attestation: Scribed for Emergency,Department by Shruthi Monroe NP . 03/17/25 22:17 SHRUTHI FINNEGAN Mar 17, 2025 20:14
[2025-03-17] MEDS ORDERED: AMOX-580 PO (22:02)
[2025-03-17] MEDS: amox tr/potassium clavulanate 875/125mg TAB PO ONE (22:09)
[2025-03-17] MEDS: TETanus/Pertussis (Acell)/Diphther VAC/PF (Tdap-Adult) 0.5ml syringe IMVAC ONE (22:14)
== END 2025-03-17 22:25 | disposition home or self-care (01) ==
LOC: ER 19:46
DX: S51.831A Puncture wound without foreign body of right forearm, initial encounter (principal); I10 Essential (primary) hypertension; M19.90 Unspecified osteoarthritis, unspecified site; E03.9 Hypothyroidism, unspecified; Z88.2 Allergy status to sulfonamides; Z88.8 Allergy status to other drugs, medicaments and biological substances; Z79.899 Other long term (current) drug therapy; W55.01XA Bitten by cat, initial encounter; Y93.89 Activity, other specified; Y92.89 Other specified places as the place of occurrence of the external cause; Y99.8 Other external cause status
CPT/HCPCS: 90715; 99283; G0008; 90471

== ENCOUNTER 2025-07-12 05:31 | Day surgery (SDC) | payer MEDICARE, BC ==
[2025-07-12] VITALS (14 sets, daily range): BP systolic 134–155; BP diastolic 67–86; PULSE 55–96; RESP 8–16; TEMP 98.5; O2SAT 96–100
[~2025-07-12] VITALS: Ht 149.9 cm; Wt 46.2 kg
[~2025-07-12 05:31] MED LIST changes: -HYDR-3964 PO
[2025-07-12] MEDS: ringers solution, lacted 1,000 ML IV SCH (06:07)
[2025-07-12] MEDS: ceFAZolin 2gm/dext,iso 50mL 50 ML IV ONE (06:08)
--- NOTE | 2025-07-12 07:29 | HISTORY AND PHYSICAL ---
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 with findings of 75% of the stomach within the chest Over the last year she developed some progressive dysphagia that has now resolved, however, she has recent history of anemia Concern for chronic blood loss anemia due to iron deficiency No blood on Hemoccult testing of stool Interval history and physical exam for EGD today with possible biopsy She was seen in the office but denies any change in her past medical history since that visit (please see previous history and physical exam for all pertinent details She is scheduled for esophagogastroduodenoscopy with possible biopsy Allergies: Coded Allergies: Sulfa (Sulfonamide Antibiotics) (Verified Allergy, Severe, CHEST CONSTRICTION, 07/11/25) latex (Verified Allergy, Severe, RASH, 07/11/25) nitrofurantoin (Verified Allergy, Severe, CHEST CONSTRICTION, 07/11/25) Home Medications Home Medications Active Reported Lisinopril-Hctz 20-25 mg Tab (Lisinopril/Hydrochlorothiazide) 20 Mg-25 Mg Tablet 1 Tab PO DAILY Levothyroxine Sodium 50 Mcg Tablet 1 Tab PO QAM Prilosec (Omeprazole) 40 Mg Capsule 0.5 Cap PO DAILY Family History Family History: CVA FATHER FH: CHF (congestive heart failure) CHILD FH: diabetes mellitus MOTHER FH: myocardial infarction Hypertension FATHER MOTHER Exam Vitals: Vital Signs Date Time Temp Pulse Resp B/P (MAP) Pulse Ox O2 Delivery O2 Flow Rate FiO2 07/12/25 06:55 16 100 07/12/25 06:53 98.5 63 146/76 (99) Room Air General: 84-year-old female in no acute distress Chest: Lungs clear to auscultation bilaterally Cardiovascular: Regular rate and rhythm without murmurs Abdomen: Soft and nondistended Problems: (1) Anemia Assessment & Plan: The risks, benefits, and alternatives to e sophagogastroduodenoscopy with possible biopsy were discussed with the patient. Risks include, but are not limited to, bleeding, perforation and the need for additional procedures. Patient verbalized understanding and wishes to proceed with surgery. We will do so today as scheduled Problem Qualifiers (1) Anemia: Anemia type: iron deficiency Iron deficiency anemia type: unspecified iron deficiency Qualified Codes: D50.9 - Iron deficiency anemia, unspecified KANG LIMON MD Jul 12, 2025 07:29
[2025-07-12] MEDS ORDERED: fentaNYL/PF 50MCG/1 ML 2ML syringe ONE (07:31)
[2025-07-12] MEDS ORDERED: LIDOcaine 2% (20mg/ml) 5ml vial ONE (07:32)
[2025-07-12] MEDS ORDERED: propofol inj 20 ML IV ONE (07:32)
--- NOTE | 2025-07-12 09:29 | OPERATIVE REPORT ---
Operative Report Providers to CC CC: VANCE CHRISTIAN MD; ARABELLA ANDINO MD ~ Date of Procedure: Jul 12, 2025 Pre-Operative Diagnosis: Anemia, status post paraesophageal hernia repair Post-Operative Diagnosis SAME as PRE-Op Procedure Performed Esophagogastroduodenoscopy with biopsies Surgeon: Vance Christian MD FACS Fiscal Specialist None Anesthesiologist: Jono Caceres Type of Anesthesia: Other (Monitored anesthesia care) Findings: Normal-appearing GE junction with no evidence of recurrent hiatal hernia Mild esophageal varices No evidence of bleeding Hill grade 1 Antral biopsies taken to rule out H pylori Complications None Prosthetics\Implants used: None Estimated Blood Loss: Minimal Specimen Removed: Antral biopsies Description of Procedure: Indication: Anemia status post paraesophageal hernia repair Consent: The patient has been informed of: #1. The nature of the procedure #2. The risk, complications, and expected benefits of the procedure. #3. Any alternatives to the procedure and the risks/benefits. Preparation: EKG pulse, blood pressure and oxygen saturation monitoring Anesthesia/sedation: As per hospital record Procedure: The patient was placed in the left lateral decubitus position. The endoscope was introduced through the mouth, advanced through the pharynx, and under direct endoscopic visualization the esophagus was intubated. The scope was passed through the esophagus with identification of the EG junction and into the stomach. The scope was then passed into the antral area with visualization of the pylorus. The pylorus was cannulated and the duodenal bulb and second portion of the duodenum were visualized. The scope was brought back into the stomach where the cardia and fundus were visualized in a retrograde manner. Color, texture, mucosa and anatomy of the esophagus, stomach and duodenum were carefully examined with the scope on insertion and withdrawal. The patient tolerated the procedure well and there were no complications. After completion of the examination, patient was transferred to the recovery room. Findings: Oropharynx: Normal Esophagus: Mild/minimal esophageal varices-nondilated EG junction: Normal with the Z-line at 32 cm Cardia: Normal Fundus: Normal Body: Normal Antrum: Normal Pylorus: Normal Duodenal bulb: Normal Second portion: Normal IMPRESSION: -normal EGD with the exception of mild, nondilated esophageal varices -Hill grade 1 with no endoscopic evidence of hiatal hernia recurrence PLAN: -await biopsy results -regular diet as tolerated -consider referral to pot reliner for additional anemia workup. VANCE CHRISTIAN MD Jul 12, 2025 09:29
== END 2025-07-12 09:33 | disposition home or self-care (01) ==
LOC: GI LAB 05:31
PROVIDERS: ATTEND Surgery
DX: D50.9 Iron deficiency anemia, unspecified (principal); I85.00 Esophageal varices without bleeding; I10 Essential (primary) hypertension; E03.9 Hypothyroidism, unspecified; G47.30 Sleep apnea, unspecified; Z87.891 Personal history of nicotine dependence; Z79.890 Hormone replacement therapy; Z79.899 Other long term (current) drug therapy; Z96.641 Presence of right artificial hip joint; Z88.2 Allergy status to sulfonamides; Z91.040 Latex allergy status; Z88.8 Allergy status to other drugs, medicaments and biological substances; Z82.3 Family history of stroke; Z82.49 Family history of ischemic heart disease and other diseases of the circulatory system; Z83.3 Family history of diabetes mellitus
CPT/HCPCS: 43239; 82948; 88305; 88342; J0690; J2003; J2704; J3010; J7120; Z7512; Z7610; 45331